=== PATIENT | male | born 1995 | race Caucasian/White ===

== ENCOUNTER 2019-04-25 22:19 | Emergency (ER) | payer BC, OTHER ==
[2019-04-25 23:01] VITALS: RESP 18
[2019-04-25] MEDS ORDERED: DIPH,PERTUS(ACELL)TETVAC-LF 0.5 ML VIAL IM ONE (23:03)
[2019-04-25] MEDS ORDERED: LIDOCAINE 1% INJ 10MG/ML (20 ML MDV) SQ STA (23:12)
--- NOTE | 2019-04-26 00:11 | ED ---
General Adult HPI - General Source: patient, RN notes reviewed, old records reviewed Mode of arrival: ambulatory Limitations: no limitations <Chemo Pablo - Last Filed: 04/26/19 00:09> <Stephanie Mendiola - Last Filed: 04/26/19 07:37> - General Chief complaint: Wound/Laceration Stated complaint: Hand lac Time Seen by Provider: 04/25/19 23:03 - History of Present Illness Initial comments: 23-year-old male patient presents to ED with laceration. Patient ports that he was using a clean knife when he cut himself on the dorsal aspect of his right hand proximal to his MCP joint. Patient suffered a 3 cm laceration. Patient states that the laceration was treated just with the tip of the knife and states it is not a deep cut. Patient states that the knife was clean and did not break. Denies that there is anything was on the knife. Patient does not know date of last tetanus. Systemic: Pt denies fatigue, myalgia, fever/chills, rash. Pt denies weakness, night sweats, weight loss. Neuro: Pt denies headache, visual disturbances, syncope or pre-syncope. HEENT: Pt denies ocular discharge or irritation, otalgia, rhinorrhea, pharyngitis or notable lymphadenopathy. Cardiopulmonary: Pt denies chest pain, SOB, heart palpitations, dyspnea on exertion. Abdominal/GI: Pt denies abdominal pain, n/v/d. : Pt denies dysuria, burning w/ urination, frequency/urgency. Denies new onset urinary or bowel incontinence. MSK: Pt denies myalgia, loss of strength or function in extremities. Neuro: Pt denies new onset weakness, paresthesias. (Chemo Pablo) - Related Data Allergies Allergy/AdvReac Type Severity Reaction Status Date / Time No Known Allergies Allergy Verified 04/25/19 23:01 Review of Systems ROS Other: All systems not noted in ROS Statement are negative. <Chemo Pablo - Last Filed: 04/26/19 00:09> ROS Other: All systems not noted in ROS Statement are negative. <Stephanie Mendiola - Last Filed: 04/26/19 07:37> ROS Statement: Those systems with pertinent positive or pertinent negative responses have been documented in the HPI. Past Medical History Past Medical History: No Reported History History of Any Multi-Drug Resistant Organisms: None Reported Past Surgical History: No Surgical Hx Reported Past Psychological History: No Psychological Hx Reported Smoking Status: Current every day smoker Past Alcohol Use History: Occasional Past Drug Use History: None Reported <Chemo Pablo - Last Filed: 04/26/19 00:09> General Exam Limitations: no limitations <Chemo Pablo - Last Filed: 04/26/19 00:09> - General Exam Comments Initial Comments: Constitutional: NAD, AOX3, Pt has pleasant affect. HEENT: NC/AT, trachea midline, neck supple, no lymphadenopathy. Posterior pharynx non erythematous, without exudates. External ears appear normal, without discharge. Mucous membranes moist. Eyes PERRLA, EOM intact. There is no scleral icterus. No pallor noted. Cardiopulmonary: RRR, no murmurs, rubs or gallops, no JVD noted. Lungs CTAB in anterior and posterior cline. No peripheral edema. Abdominal exam: Abdomen soft and non-distended. Abdomen non-tender to palpation in all 4 quadrants. Bowel sounds active in LLQ. No hepatosplenomegaly. No ecchymosis Neuro: CN II-XII grossly intact. No nuchal rigidity. MSK: 3 cm laceration on right hand was last January proximal to second MCP joint. Full active range of motion all digits. Flexion and extension intact at MCP. PDA DIP joints. Cap refill less than 2 seconds. Flexion and extension rotation intact of first digit. Sensation intact to all digits. Wound was irrigated with 500 mL normal saline. Explored, no ligamentous bony involvement. No foreign body. Approximated with 4 simple interrupted sutures. No posterior calf tenderness bilaterally, homans sign negative bilaterally. Posterior tibialis and radial pulse +2 bilaterally. Sensation intact in upper and lower extremities. Full active ROM in upper and lower extremities, 5/5 stregnth. (Chemo Pablo) Course Vital Signs 04/25/19 04/26/19 22:59 00:32 Temperature 98.4 F 98.2 F Pulse Rate 80 71 Respiratory 18 18 Rate Blood Pressure 135/84 123/88 O2 Sat by Pulse 100 99 Oximetry Procedures - Laceration Laceration #1 Consent Obtained: verbal consent Indication: laceration Site: hand (R hand ) Size (cm): 3 Description: linear Depth: simple, single layer Anesthetic Used: lidocaine 1% Anesthesia Technique: local infiltration Amount (mls): 5 Pre-repair: wound explored, irrigated extensively (500mL NS ), deep structures intact (no osseous, ligamentous or foreign body) Type of Sutures: nylon Size of Sutures: 5-0 Number of Sutures: 4 Technique: simple, interrupted Patient Tolerated Procedure: well, no complications <Chemo Pablo - Last Filed: 04/26/19 00:09> Medical Decision Making <Chemo Pablo - Last Filed: 04/26/19 00:09> <Stephanie Mendiola - Last Filed: 04/26/19 07:37> - Medical Decision Making 23-year-old male patient presents to ED with laceration. Patient ports that he was using a clean knife when he cut himself on the dorsal aspect of his right hand proximal to his MCP joint. Patient suffered a 3 cm laceration. Patient states that the laceration was treated just with the tip of the knife and states it is not a deep cut. Patient states that the knife was clean and did not break. Denies that there is anything was on the knife. Patient does not know date of last tetanus. Pt VSS, afebrile. Physical exam displayed: 3 cm laceration on right hand was last January proximal to second MCP joint. Full active range of motion all digits. Flexion and extension intact at MCP. PDA DIP joints. Cap refill less than 2 seconds. Flexion and extension rotation intact of first digit. Sensation intact to all digits. Wound was irrigated with 500 mL normal saline. Explored, no ligamentous bony involvement. No foreign body. Approximated with 4 simple interrupted sutures. Patient tetanus updated. Patient will return in 710 days for suture removal. Patient monitor for signs symptoms of infection. Case discussed with Dr. Mendiola. (Chemo Pablo) I was available for consultation in the emergency department. The history and physical exam were done by the Midlevel Provider. Medical decision making was done by the Midlevel Provider. I have reviewed the chart, however was not consulted specifically or made aware of this patient by the above midlevel provider and did not personally evaluate, interact with, or disposition this patient on the day of their visit Chart was dictated using [employer] dictation software. Attempts were made to correct any dictation errors however some typographical errors may persist. (Stephanie Mendiola) Disposition Is patient prescribed a controlled substance at d/c from ED?: No <Chemo Pablo - Last Filed: 04/26/19 00:09> <Stephanie Mendiola - Last Filed: 04/26/19 07:37> Clinical Impression: Laceration Disposition: HOME SELF-CARE Condition: Stable Instructions (If sedation given, give patient instructions): Care For Your Stitches (ED), Laceration (ED) Additional Instructions: Patient to adhere to previously discussed treatment plan and will take medication(s) as directed. Patient to follow up with PCP in 1-2 days. Patient to return to ED if symptoms do not improve. Please return for suture removal: Hand: 7-10 days Face: 5 days Chest/abdomen: 12-14 days Extremities: 7-10 days Scalp: 7 days Eyebrow: 5-7 days Foot/sole: 12-14 days Please monitor for signs and symptoms of infection including: redness, warmth, drainage, discharge. Please return to ED if these signs or symptoms occur, new signs or symptoms develop or if condition worsens in anyway. Referrals: None,Stated [Primary Care Provider] - 1-2 days
[2019-04-26 00:34] VITALS: BP 123/88; PULSE 71; TEMP 98.2
== END 2019-04-26 00:32 | disposition home or self-care (01) ==
LOC: EC 22:19
DX: S61.411A Laceration without foreign body of right hand, initial encounter (principal); F17.200 Nicotine dependence, unspecified, uncomplicated; Z23 Encounter for immunization; W20.8XXA Other cause of strike by thrown, projected or falling object, initial encounter; W26.0XXA Contact with knife, initial encounter; Y93.89 Activity, other specified; Y99.0 Civilian activity done for income or pay
CPT/HCPCS: 90715; 99283; 90471; 12002; J2001